=== PATIENT | male | born 1960 | race African-American/Black ===

== ENCOUNTER → 2018-05-05 | Outpatient (CLI) | payer OTHER ==
--- NOTE | 2018-05-05 10:27 | ECHOS ---
STRESS ECHOCARDIOGRAM DATE OF SERVICE: 05/05/2018 INDICATIONS: Chest pain. MEDICATIONS: BASELINE HEART RATE: 81 BASELINE BLOOD PRESSURE: 124/65 MAXIMUM HEART RATE: 139 MAXIMUM BLOOD PRESSURE: 178/92 85% MPHR: 139 100% MPHR: 163 METS: 6 MAXIMUM STAGE REACHED: I TOTAL EXERCISE TIME: 5 minutes. CLINICAL INFORMATION: STRESS DATA: Pretesting physical examination showed a heart rate of 81, pressure is 124/65 mmHg. Baseline EKG showed sinus mechanism. The patient exercised on the treadmill according to [place] protocol for a total of 5 minutes and achieved 6.2 METs. The max heart rate was 139, which is about 85% of maximum predicted heart rate. Maximum blood pressure was 178/92 mmHg. Clinically the patient developed chest discomfort in response to exercise and the EKG showed [address]-segment depression at the peak of the exercise. ECHOCARDIOGRAM IMAGES: On echocardiogram images from parasternal long axis view, parasternal short axis view, apical 4 chamber and apical 2 chamber were obtained as the baseline images, at the peak of the heart rate as well as on recovery and the echo showed wall motion abnormalities involving the lateral wall. The wall motion abnormalities concerning for inducible ischemia. CONCLUSION: 1. Average exercise tolerance. 2. Chest discomfort in response to exercise. 3. Abnormal EKG in response to exercise. 4. Abnormal echocardiogram in response to exercise. 5. Essentially abnormal stress echocardiogram with evidence of inducible ischemia noted. MMODL / IJN: [id number] /
== END | disposition home or self-care (01) ==
LOC: RADNMMAIN 09:00
PROVIDERS: ATTEND Family Medicine
DX: I25.9 Chronic ischemic heart disease, unspecified (principal)
CPT/HCPCS: 93351

== ENCOUNTER → 2018-05-17 | Outpatient (CLI) | payer OTHER ==
[2018-05-17 13:36] LABS: HCT 50.7 % (39.0-53.0); HGB 16.1 gm/dL (13.0-17.5); MCH 28.5 pg (25.0-35.0); MCHC 31.8 g/dL (31.0-37.0); MCV 89.7 fL (80.0-100.0); Mean Platelet Volume 6.1; Platelet Count 185 k/uL (150-450); RBC 5.65 m/uL (4.30-5.90); RDW 13.5 % (11.5-15.5); WBC 7.2 k/uL (3.8-10.6)
[2018-05-17 13:42] LABS: Potassium 4.8 mmol/L (3.5-5.1)
== END ==
LOC: LABPAT 12:23
PROVIDERS: ATTEND Internal Medicine Interventional Cardiology
DX: Z01.812 Encounter for preprocedural laboratory examination (principal); R07.89 Other chest pain
CPT/HCPCS: 36415; 80051; 82565; 82947; 84520; 85027

== ENCOUNTER 2018-05-20 09:38 | Day surgery (SDC) | payer OTHER ==
[~2018-05-20 09:38] MED LIST: ALPRAZolam 0.25 MG TAB PO PRN; ALPRAZolam 0.5 MG TAB PO PRN; ASPIRIN 325 MG TAB PO STA; ATORVASTATIN 80 MG TAB PO STA; NITROGLYCERIN SL TABS 0.4 MG TAB SUBLINGUAL PRN; SODIUM CHLORIDE 0.9% 1,000 ML in EMPTY BAG 1 BAG IV ONE
[2018-05-20 13:29] VITALS: RESP 18
[2018-05-20 14:03] VITALS: BMI 29.5
[2018-05-20] MEDS ORDERED: MIDAZOLAM 2 MG/2 ML VIAL IVP ONE (20:13)
[2018-05-20] MEDS ORDERED: LIDOCAINE 1% INJ 10MG/ML (20 ML MDV) SQ ONE (20:16)
[2018-05-20] MEDS: VERAPAMIL SYRINGE (5 MG/10 ML) INTRAARTER ONE ×2 (20:18→20:27)
[2018-05-20] MEDS ORDERED: HEPARIN SODIUM 1,000 UN/ML (10ML VL) IV ONE (20:19)
[2018-05-20] MEDS ORDERED: IOPAMIDOL-370 150ML BTL INJ ONE (20:26)
[2018-05-20] MEDS ORDERED: RX INFO: IV CONTRAST WAS GIVEN 1 EACH MISC MISCELLANE PRN (20:33)
[2018-05-20] MEDS ORDERED: SODIUM CHLORIDE 0.9% 1,000 ML IV SCH (20:45)
[2018-05-20] MEDS: MORPHINE SULFATE 2 MG/ML SYRINGE IVP PRN (22:13)
[2018-05-21] MEDS: MORPHINE SULFATE 2 MG/ML SYRINGE IVP PRN ×2 (02:03→06:32)
--- NOTE | 2018-05-21 07:29 | LTR ---
May 20, 2018 Re: Greg Reedererson Dear Dr. Arce: Mr. Greg Tracy underwent today a heart catheterization that revealed normal coronaries. I want to thank you for allowing me to participate in his care and please do not hesitate to call if you have any question or concerns. Sincerely, MD SHABBIR Peralta / MICHAEL: [phone] /
--- NOTE | 2018-05-21 07:29 | CC ---
CARDIAC CATHETERIZATION REPORT DATE OF SERVICE: 05/20/2018 PERFORMING PHYSICIAN: Jayro Pittman MD, reflexologist. PROCEDURE PERFORMED: 1. Selective right and left coronary angiogram. 2. Left heart catheterization. INDICATION: This is a pleasant 58-year-old gentleman who has hypertension who was experiencing chest discomfort and underwent stress echocardiogram, showed ischemia. Because of that, a heart catheterization was advised. APPROACH: Right radial artery. COMPLICATION: None. LEVEL OF SEDATION: Moderate with sedation length of 13 minutes. PROCEDURE DESCRIPTION: After obtaining an informed consent, the patient was brought to the cardiac labor economics professor. The right radial artery was cannulated using micropuncture technique, the micropuncture wire passed easily then I placed a 6-[place] sheath in the right radial artery. After that, I did selective right and left coronary angiogram using JR4 and JL3.5 catheters. Left heart catheterization was performed using 5-Green[place] pigtail catheter. The procedure was completed without any complication. SELECTIVE CORONARY ANGIOGRAM: 1. The right coronary artery is a large caliber vessel and is a dominant vessel. The right coronary artery is angiographically normal. It distally bifurcates into PDA and PLV branches. Both appeared to be angiographically normal. 2. The left main is angiographically normal. It bifurcates into the circumflex, ramus intermedius, and left anterior descending artery. 3. Left circumflex is a large caliber vessel. It is a codominant vessel. The left circumflex appeared to be angiographically normal. 4. The ramus intermedius is a large caliber vessel, which seems to be also angiographically normal. It bifurcates into 2 subbranches, appeared to be angiographically normal. 5. The LAD: The proximal LAD appeared to be normal. The mid LAD appeared to be normal and the LAD distally appeared to be normal as well. HEMODYNAMICS: The left ventricular end-diastolic pressure was 8 mmHg without significant gradient across the aortic valve. CONCLUSION: 1. Normal coronary angiogram. 2. Normal left ventricular end-diastolic pressure. POSTPROCEDURE MANAGEMENT: 1. Medical treatment. 2. Follow up with the patient. MMODL / IJN: [id number] /
[2018-05-21 08:08] VITALS: BP 126/79; PULSE 68; TEMP 98.2
--- NOTE | 2018-05-21 09:51 | P.PCN ---
Date of Procedure: 05/21/18 Preoperative Diagnosis: Chest pain. Possible ischemic heart disease Postoperative Diagnosis: Normal coronary arteries Procedure(s) Performed: Left heart catheterization Description of Procedure: This is a 58-year-old gentleman who was evaluated by Dr. Calvo. Her chest pains. Patient had a cardiac catheterization and was found to have normal coronary arteries. Patient has remained stable since the procedure. Vital signs are stable. The puncture site seems to be healing normally. He patient is being discharged home. Follow-up with Dr. Calvo in one week
== END 2018-05-21 10:09 | disposition home or self-care (01) ==
LOC: CATHCVL 09:38 → 1SOBS 12:56 → CATHCVL 05-21 10:09
PROVIDERS: ATTEND Internal Medicine Interventional Cardiology
DX: I20.0 Unstable angina (principal); R94.39 Abnormal result of other cardiovascular function study; I10 Essential (primary) hypertension; E78.00 Pure hypercholesterolemia, unspecified; Z79.82 Long term (current) use of aspirin; Z72.0 Tobacco use; Z79.899 Other long term (current) drug therapy
CPT/HCPCS: 93458; C1769; C1894; J2250; J2001; J2270 ×2; J1644; Q9967

== ENCOUNTER → 2020-07-09 | Outpatient (CLI) | payer OTHER | END | disposition home or self-care (01) | LOC: LABWHC1 15:28 | PROVIDERS: ATTEND Emergency Medicine | DX: Z20.822 Contact with and (suspected) exposure to COVID-19 (principal) | CPT/HCPCS: U0003; C9803; U0005 ==